=== PATIENT | male | born 1995 | race Two or more races ===

== ENCOUNTER 2024-05-31 09:06 | Emergency (ER) | payer MEDICAID, OTHER ==
[~2024-05-31] VITALS: Ht 170.2 cm; Wt 83.3 kg
--- NOTE | 2024-05-31 09:36 | ED.PDOC ---
Eye-HPI HPI Comments A 28 YEAR OLD MALE PRESENTS TO THE ED WITH COMPLAINT OF RIGHT UPPER DENTAL PAIN. PATIENT STATES HE HAS BEEN EXPERIENCING DENTAL PAIN ON THE RIGHT UPPER SIDE OF HIS MOUTH FOR THE PAST TWO DAYS. PATIENT REPORTS HE BEGAN TO HAVE MILD RIGHT- SIDED FACIAL SWELLING TODAY, PROMPTING HIM TO COME TO THE ED TODAY FOR EVALUATI ON. PATIENT DENIES FEVER, CHILLS, SHORTNESS OF BREATH, CHEST PAIN, ABDOMINAL PAIN, NAUSEA, VOMITING, HEADACHE, OR OTHER COMPLAINTS. NO OTHER SYMPTOMS OR MODIFYING FACTORS AT THIS TIME. PATIENT IS ALERT, ORIENTED X 4, AND HAS STEADY GAIT. Chief Complaint: Tooth Pain Time Seen by MD: 09:12 Reviewed Notes: Nurses Notes, Medications, Allergies Home Meds Active Scripts Ibuprofen (Ibuprofen) 800 Mg Tab, 1 TAB PO TID, #30 TAB Prov:DESTINEE DANIELS 05/31/24 Clindamycin Hcl (Clindamycin Hcl) 300 Mg Cap, 300 MG PO QID, #40 CAP Prov:DESTINEE DANIELS 05/31/24 Information Source: Patient Mode of Arrival: Ambulatory Timing: Days Duration: Since onset, Days Prehospital treatment: None Quality: Pain Lids: Normal Conjunctiva: Normal Cornea: Normal Pupils: Normal EOM: Normal Fundus: Normal Slit lamp exam: Normal Anterior chamber: Normal Mouth Location: Right, Upper, Tooth/Teeth, Gums Mouth: Right, Upper, Premolar, Molar, Tender, Carious ENT Ear Exam: Normal, Normal, Normal Nose: Normal Sinuses: Normal Oropharynx: Normal Onset: Spontaneous Throat Exposed to: None History of: None Last Tetanus: Unknown Modifying factors: Nothing Associated signs and symptoms: Tooth Pain Past Medical History PAST MEDICAL HISTORY: Denies Surgical History: Denies all surgeries Family History Family History: Reviewed,noncontributory to illness Social History Smoker: Non-Smoker Alcohol: Denies ETOH Use Drugs: Denies Drug Use Lives In: Home Constitutional: denies: chills, diaphoresis, fatigue, fever, malaise, sweats, weakness, others EENTM: reports: mouth pain (RIGHT UPPER DENTAL PAIN); denies: blurred vision, double vision, ear bleeding, ear discharge, ear drainage, ear pain, ear ringing, eye pain, eye redness, hearing loss, mouth swelling, nasal discharge, nose bleeding, nose congestion, nose pain, photophobia, tearing, throat pain, throat swelling, voice changes, others Respiratory: denies: cough, hemoptysis, orthopnea, SOB at rest, shortness of breath, SOB with excertion, stridor, wheezing, others Cardiovascular: denies: chest pain, dizzy spells, diaphoresis, Dyspnea on exertion, edema, irregular heart beat, left arm pain, lightheadedness, palpitations, PND, syncope, others Gastrointestinal: denies: abdomen distended, abdominal pain, blood streaked bowels, constipated, diarrhea, dysphagia, difficulty swallowing, hematemesis, melena, nausea, poor appetite, poor fluid intake, rectal bleeding, rectal pain, vomiting, others Genitourinary: denies: burning, dysuria, flank pain, frequency, hematuria, incontinence, penile discharge, penile sore, pain, testicle pain, testicle swelling, urgency, others Neurological: denies: dizziness, fainting, headache, left sided numbness, left sided weakness, numbness, paresthesia, pre-existing deficit, right sided numbness, right sided weakness, seizure, speech problems, tingling, tremors, weakness, others Musculoskeletal: denies: back pain, gout, joint pain, joint swelling, muscle pain, muscle stiffness, neck pain, others Integumetry: denies: bruises, change in color, change in hair/nails, dryness, laceration, lesions, lumps, rash, wounds, others Allergic/Immunocompromised: denies: Difficulty Healing, Frequent Infections, Hives, Itching, others Hematologic/Lymphatic: denies: anemia, blood clots, easy bleeding, easy bruising, swollen glands, others Endocrine: denies: excessive hunger, excessive sweating, excessive thirst, excessive urination, flushing, intolerance to cold, intolerance to heat, unexplained weight gain, unexplained weight loss, others Psychiatric: denies: anxiety, bipolar disorder, depression, hopeless, panic disorder, schizophrenia, sleepless, suicidal, others All Other Systems: Reviewed and Negative Physical Exam General Appearance: No Apparent Distress, Normal HEENT: Normal ENT Inspection, PERRL/EOMI, Pharynx Normal, TMs Normal, Other (ERYTHEMA AND SWELLING ON RIGHT UPPER GUM AROUND TOOTH, DENTAL INFECTION, MILD RIGHT CHEEK SWELLING. ) Neck: Full Range of Motion, Non-Tender, Normal, Normal Inspection Respiratory: Chest Non-Tender, Lungs Clear, No Accessory Muscle Use, No Respiratory Distress, Normal Breath Sounds Cardiovascular: No Edema, No JVD, No Murmur, No Gallop, Normal Peripheral Pulses, Regular Rate/Rhythm Breast Exam: Deferred Gastrointestinal: No Organomegaly, Non Tender, No Pulsatile Mass, Normal Bowel Sounds, Soft Genitalia: Deferred Pelvic: Deferred Rectal: Deferred Extremities: No calf tenderness, Normal capillary refill, Normal inspection, N ormal range of motion, Non-tender, No pedal edema Musculoskeletal : Apperance: Normal Neurologic: Alert, chemical cell changer II-XII nml as Tested, No Motor Deficits, Normal Affect, Normal Mood, No Sensory Deficits Cerebellar Function: Normal Reflexes: Normal Skin: Dry, Normal Color, Warm Peripheral Pulses: 2+ carotid (R), 2+ carotid (L) Lymphatic: No Adenopathy Was a procedure done? Was a procedure done?: No EENT DIFF Eye: N/A Ear: Otitis Externa, Otitis Media, Dental, Pharyngitis, N/A Nose: N/A Mouth: Other (DENTAL PAIN, DENTAL CARIES, DENTAL INFECTION, DENTAL ABSCESS, GINGIVITIS) Sore Throat: N/A X-Ray, Labs, Meds, VS Vital Signs Date Time Temp Pulse Resp B/P (MAP) Pulse Ox O2 Delivery O2 Flow Rate FiO2 05/31/24 09:38 98.0 05/31/24 09:13 98.0 64 18 128/90 (103) 96 98.0 Current Medications Medications (Trade) Dose Ordered Sig/Yvette Route Start Time Stop Time Status Last Admin Ceftriaxone Sodium (Rocephin) 1,000 mg ONCE ONCE IM 05/31/24 09:45 05/31/24 09:46 DC 05/31/24 09:38 Ibuprofen (Motrin Tablet) 800 mg ONCE ONCE PO 05/31/24 09:45 05/31/24 09:46 DC 05/31/24 09:38 X-Ray, Labs, Meds, VS Comment EXTERNAL MEDICAL RECORDS REVIEWED: [NONE] INDEPENDENT HISTORIANS: [NONE] SOCIAL DETERMINANTS OF HEALTH: [NONE] LABS ORDERED: NONE REVIEWED AND INTERPRETED RESULTS: NONE IMAGING ORDERED: NONE TREATMENTS ORDERED: ROCEPHIN 1 G IM, MOTRIN 800 MG P.O. PROCEDURES PERFORMED: NONE CRITICAL CARE TIME: NONE I HAVE DISCUSSED THE PATIENT WITH THE ATTENDING PHYSICIAN DR. SANDOVAL AND HE AGREES WITH THE PATIENT'S PLAN OF CARE AND DISPOSITION. BASED ON HISTORY OF PRESENT ILLNESS, AND PHYSICAL EXAM, PATIENT WILL BE DISCHARGED HOME. DISCUSSED PLAN FOR DISCHARGE HOME WITH RX [CLINDAMYCIN AND MOTRIN 800 MG]. MEDICATION WARNINGS GIVEN. SHARED DECISION MAKING: PATIENT INSTRUCTED TO FOLLOW UP WITH PRIMARY CARE PROVIDER IN 1-2 DAYS FOR RE-EVALUATION OF SYMPTOMS. PATIENT VERBALIZES UNDERSTANDING TO RETURN TO ED FOR NEW OR WORSENING SYMPTOMS OR IF FOLLOW UP WITH PCP CANNOT BE OBTAINED. PATIENT FEELS COMFORTABLE GOING HOME AT THIS TIME. ALL QUESTIONS ADDRESSED AT TIME OF DISCHARGE. Time of 1ST Reevaluation: 10:00 Reevaluation 1ST: Improved Patient Education/Counseling: Diagnosis, Treatment, Need For Follow Up Family Education/Counseling: Diagnosis, Treatment, Need For Follow Up Medical Screening: No EMC Exist At This Time Departure 1 Departure Time of Disposition: 10:00 Impression: Primary Impression: Dental infection Disposition: 01 HOME / SELF CARE / HOMELESS Condition: Stable Additional Instructions: FOLLOW-UP WITH PCP AND DENTIST IN 1 TO 2 DAYS. TAKE MEDICATIONS PRESCRIBED. RETURN TO ED FOR ANY NEW OR WORSENING SYMPTOMS. e-Prescriptions Ibuprofen (Ibuprofen) 800 Mg Tab 1 TAB PO TID, #30 TAB Prov: DESTINEE DANIELS 05/31/24 Clindamycin Hcl (Clindamycin Hcl) 300 Mg Cap 300 MG PO QID, #40 CAP Prov: DESTINEE DANIELS 05/31/24 Discharged With: Self Critical Care Note Critical Care Time?: No Stability Stability form required: No I personally scribed for DESTINEE DANIELS ([email or web address]) on 05/31/24 at 09:36. Electronically submitted by Manohar Wallace ([email or web address]). DESTINEE DANIELS May 31, 2024 09:36
[2024-05-31] MEDS: cefTRIAXone SOD 1,000 MG VL IM ONE (09:38)
[2024-05-31] MEDS: IBUPROFEN 800 MG TAB PO ONE (09:38)
[2024-05-31] MEDS ORDERED: IBUP-1456 PO (09:50)
[2024-05-31] MEDS ORDERED: CLIN1CAP70 PO (09:50)
[2024-05-31 09:58] VITALS: BP 131/87; PULSE 68; RESP 18; TEMP 98.1; O2SAT 96
== END 2024-05-31 10:00 | disposition home or self-care (01) ==
LOC: ER 09:06
DX: K04.7 Periapical abscess without sinus (principal)
CPT/HCPCS: 96372; 99283; J0696